=== PATIENT | male | born 1990 | race Caucasian/White ===

== ENCOUNTER 2018-08-04 03:55 | Emergency (ER) | payer OTHER ==
[2018-08-04 04:01] VITALS: BP 133/71
[2018-08-04] MEDS ORDERED: DIAZEPAM INJ 10 MG/2 ML DISP.SYRIN IM ONE (04:20)
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
== END 2018-08-04 04:58 | disposition home or self-care (01) ==
LOC: ER 03:55
DX: M62.838 Other muscle spasm (principal); M54.9 Dorsalgia, unspecified; V29.9XXA Motorcycle rider (driver) (passenger) injured in unspecified traffic accident, initial encounter; F17.200 Nicotine dependence, unspecified, uncomplicated
CPT/HCPCS: 99283; 96372; J3360